=== PATIENT | male | born 1980 ===

== ENCOUNTER 2024-08-07 11:48 | Inpatient (IN) | payer OTHER ==
[2024-08-07] VITALS (8 sets, daily range): BP systolic 113–134; BP diastolic 71–87; PULSE 58–126; RESP 20–27; TEMP 98.6–101.5; O2SAT 98–100
[~2024-08-07] VITALS: Ht 177.8 cm; Wt 78.5 kg
[2024-08-07] MEDS ORDERED: METH-386 PO (11:53)
[2024-08-07] MEDS ORDERED: APIX5TAB PO (11:53)
[2024-08-07] MEDS ORDERED: CARV6 PO (11:53)
[2024-08-07] MEDS ORDERED: DIGO125T84 PO (11:53)
[2024-08-07] MEDS ORDERED: 0.9% SODIUM CHLORIDE 10 ML SYRINGE IVP PRN (12:00)
[2024-08-07] MEDS ORDERED: ROCURONIUM BROMIDE 10 MG/ML 5 ML VIAL ONE (12:31)
[2024-08-07 13:05] LABS: BASOPHILS % (AUTO) 0.4 % (0.0-2.0); EOSINOPHILS % (AUTO) 0 % (1.0-6.0); HEMATOCRIT 48.4 % (41-53); LYMPHOCYTES # (AUTO) 1.1 K/uL (1.0-4.8); LYMPHOCYTES % (AUTO) 11.4 % (22.0-44.0); MEAN CORPUSCULAR HEMOGLOBIN 31.1 pg (26.0-34.0); MEAN CORPUSCULAR HGB CONC 33.1 G/dL (31.0-37.0); MEAN CORPUSCULAR VOLUME 94 fL (80-100); MONOCYTES # (AUTO) 0.9 K/uL (0.1-1.0); MONOCYTES % (AUTO) 9.6 % (2.0-9.0); NEUTROPHILS # (AUTO) 7.8 K/uL (1.8-7.7); NEUTROPHILS % (AUTO) 78.6 % (40.0-70.0); PLATELET COUNT (AUTO) 164 K/uL (150-450); RED BLOOD CELL COUNT(AUTO) 5.15 MIL/uL (4.50-5.90); RED CELL DISTRIBUTION WIDTH 14.2 % (11.5-14.5); WHITE BLOOD COUNT (AUTO) 9.9 K/uL (4.5-11.0)
[2024-08-07 13:10] LABS: APPEARANCE,URINE CLEAR (CLEAR); BILIRUBIN,URINE NEGATIVE (NEGATIVE); COLOR,URINE YELLOW (YELLOW); GLUCOSE, URINE (UA) NEGATIVE (NEGATIVE); LEUKOCYTE ESTERASE ,URINE NEGATIVE (NEGATIVE); NITRATE,URINE NEGATIVE (NEGATIVE); OCCULT BLOOD,URINE MODERATE (NEGATIVE); PH,URINE 5.5 (5.0-8.0); PROTEIN,URINE 100-200,SEE CONFIRM mg/dL (NEGATIVE); SPECIFIC GRAVITIY, URINE 1.031 (1.003-1.030); UROBILINOGEN,URINE <=1.0 mg/dL (<=1.0)
[2024-08-07] MEDS: PROPOFOL 1000 MG/ISO-OSM 100 ML IV PRN (13:14)
[2024-08-07 13:17] LABS: INR 1.2 (0.9-1.1); PROTHROMBIN TIME 12.7 SEC (9.4-11.6)
[2024-08-07 13:21] LABS: ANION GAP 15 mmol/L (8-16); CARBON DIOXIDE 22 mmol/L (22-29); CHLORIDE 106 mmol/L (98-107); CREATININE 1.75 mg/dL (0.60-1.30); GLOMERULAR FILTR. RATE CALC 42 mL/min (>60); GLUCOSE,RANDOM 86 mg/dL (70-110); POTASSIUM 4.9 mmol/L (3.5-5.1); SODIUM SERUM 143 mmol/L (136-145); UREA NITROGEN, BLOOD 35 mg/dL (7-18)
[2024-08-07 13:30] LABS: BACTERIA,URINE None Seen /HPF (None Seen); SULFOSALICYLIC ACID,URINE 1+ (Negative); WBC,URINE None Seen /HPF (0-5)
[2024-08-07 13:30] LABS: LACTIC ACID 4.1 mmol/L (0.4-2.0)
[2024-08-07 13:31] LABS: SQUAMOUS EPITHELIAL CELL,UR None Seen /LPF (None Seen)
[2024-08-07 13:34] LABS: ALANINE AMINOTRANSFERASE 35 U/L (12-78); ALBUMIN 3.2 g/dL (3.4-5.0); ALKALINE PHOSPHATASE 119 U/L (46-116); ASPARTATE AMINOTRANSFERASE 66 U/L (15-37); BILIRUBIN,TOTAL 1.7 mg/dL (0.1-1.0)
[2024-08-07] MEDS: SODIUM CHLORIDE 0.9% 2,250 ML IV ONE (13:49)
[2024-08-07] MEDS: FentaNYL CIT 1000MCG/0.9% NACL 100 ML IV PRN (14:17)
[2024-08-07 14:25] LABS: ABG BASE EXCESS -7.3 mmol/L (-2.0-3.0); ABG CARBOXYHEMOGLOBIN 1.1 % (0.5-1.5); ABG HCO3 19.3 mmol/L (21.0-28.0); ABG METHEMOGLOBIN 0.9 % (0.0-1.5); ABG OXYGEN CONTENT 21.5 mL/dL (15.0-23.0); ABG OXYGEN SATURATION 99.7 % (94.0-98.0); ABG OXYHEMOGLOBIN 97.7 % (94.0-98.0); ABG PCO2 38 mmHg (35.0-48.0); ALLEN TEST, BLOOD GAS Positive; O2 DEVICE,BLOOD GAS VENTILATOR (ROOM AIR); PEEP,BG 5 cm H2O; PO2, ARTERIAL BG 363.8 mmHg (83.0-108.0); SITE, BLOOD GAS LFT RADIAL; SOURCE, BLOOD GAS ARTERIAL; TEMPERATURE, FAHRENHEIT, BG 102.1 FAHREN (96.0-98.6); VT, ABG 450 ml
[2024-08-07 14:26] LABS: SPONTANEOUS VT, BG 462 ml
[2024-08-07] MEDS ORDERED: ONDANSETRON HCL 4 MG/2 ML VIAL IVP PRN (14:30)
[2024-08-07] MEDS: AMPICILLIN SODIUM/SULBACTAM NA 3 GM in SODIUM CHLORIDE 0.9% 100 ML IV ONE (14:30)
[2024-08-07] MEDS ORDERED: IPRATROPIUM BROMIDE 0.5 MG/2.5 ML NEB SOLUTION NEB PRN (14:30)
[2024-08-07] MEDS ORDERED: ALBUTEROL SULFATE 2.5 MG/0.5 ML NEB SOLUTION NEB PRN (14:30)
[2024-08-07 14:57] LABS: ALCOHOL, URINE DRUG SCREEN NEGATIVE (NEGATIVE); AMPHET/METH SCREEN,URINE NEGATIVE (NEGATIVE); BARBITURATE SCREEN, URINE NEGATIVE (NEGATIVE); BENZODIAZEPINES SCREEN,URINE POSITIVE (NEGATIVE); CANNABINOID SCREEN,URINE POSITIVE (NEGATIVE); COCAINE SCREEN,URINE NEGATIVE (NEGATIVE); METHADONE SCREEN, URINE NEGATIVE (NEGATIVE); OPIATE SCREEN,URINE NEGATIVE (NEGATIVE); PHENCYCLIDINE SCREEN,URINE NEGATIVE (NEGATIVE)
[2024-08-07] MEDS: LevETIRAcetam 2,000 MG in DEXTROSE 5%-WATER 250 ML IV ONE (15:18)
[2024-08-07 15:35] LABS: PH,URINE DRUG SCREEN 5.5 (5.0-8.0)
[2024-08-07] MEDS: HEPARIN SODIUM,PORCINE 5,000 UNITS/ML VIAL SQ SCH (15:36)
[2024-08-07] MEDS: ACETAMINOPHEN 325 MG TABLET PO PRN (15:37)
[2024-08-07] MEDS: VANCOMYCIN 1.25 GM/WATER(PEG) 250 ML IV ONE (15:37)
[2024-08-07 17:08] LABS: DIGOXIN < 0.20 ng/mL (0.90-2.00); THYROID STIMULATING HORMONE < 0.01 uIU/mL (0.36-3.74)
[2024-08-07] MEDS: PIPERACILLIN/TAZO 3.375 GM/D5W 50 ML IV SCH (18:03)
[2024-08-07] MEDS ORDERED: MIDAZOLAM HCL 2 MG/2 ML VIAL IVP PRN (18:45)
[2024-08-07 19:16] LABS: GLUCOMETER DEV NAME(LOC) ICUN.5; GLUCOSE,POINT OF CARE 89 MG/DL (70-110)
[2024-08-07] MEDS: FAMOTIDINE 20 MG/2 ML VIAL IVP SCH (20:37)
[2024-08-07] MEDS: LevETIRAcetam 500 MG in DEXTROSE 5%-WATER 100 ML IV SCH (20:37)
[2024-08-07] MEDS: CHLORHEXIDINE GLUCONATE 0.12% 15 ML UDCUP ORAL RINSE MM SCH (20:37)
[2024-08-07] MEDS: DOCUSATE SODIUM 100 MG CAPSULE PO SCH (20:38)
[2024-08-07] MEDS ORDERED: LevETIRAcetam 500 MG TABLET GT SCH (21:00)
[2024-08-07] MEDS: CHLORHEXIDINE GLUCONATE 2% TOWELETTE [2'S/6'S] TP SCH (22:09)
[2024-08-08] VITALS (15 sets, daily range): BP systolic 92–114; BP diastolic 58–73; PULSE 44–82; RESP 16–20; TEMP 97.2–98.3; O2SAT 97–100
[2024-08-08 00:04] LABS: ANION GAP 9 mmol/L (8-16); CALCIUM, TOTAL 7.8 mg/dL (8.8-10.5); CARBON DIOXIDE 24 mmol/L (22-29); CHLORIDE 110 mmol/L (98-107); CREATININE 1.07 mg/dL (0.60-1.30); GLOMERULAR FILTR. RATE CALC > 60 mL/min (>60); GLUCOSE,RANDOM 97 mg/dL (70-110); POTASSIUM 3.8 mmol/L (3.5-5.1); SODIUM SERUM 143 mmol/L (136-145); UREA NITROGEN, BLOOD 27 mg/dL (7-18)
[2024-08-08] MEDS: PROPOFOL 1000 MG/ISO-OSM 100 ML IV PRN (05:51)
[2024-08-08 06:29] LABS: EOSINOPHILS % (AUTO) 0.7 % (1.0-6.0); HEMOGLOBIN 13.2 g/dL (13.5-17.5); LYMPHOCYTES # (AUTO) 2.2 K/uL (1.0-4.8); LYMPHOCYTES % (AUTO) 31.2 % (22.0-44.0); MEAN CORPUSCULAR HEMOGLOBIN 31.1 pg (26.0-34.0); MEAN CORPUSCULAR HGB CONC 33.1 G/dL (31.0-37.0); MEAN CORPUSCULAR VOLUME 94 fL (80-100); MONOCYTES # (AUTO) 1.3 K/uL (0.1-1.0); MONOCYTES % (AUTO) 18.5 % (2.0-9.0); NEUTROPHILS # (AUTO) 3.5 K/uL (1.8-7.7); NEUTROPHILS % (AUTO) 48.6 % (40.0-70.0); PLATELET COUNT (AUTO) 123 K/uL (150-450); RED BLOOD CELL COUNT(AUTO) 4.26 MIL/uL (4.50-5.90); WHITE BLOOD COUNT (AUTO) 7.1 K/uL (4.5-11.0)
[2024-08-08 06:36] LABS: ANION GAP 7 mmol/L (8-16); CARBON DIOXIDE 26 mmol/L (22-29); CHLORIDE 111 mmol/L (98-107); CREATININE 1.17 mg/dL (0.60-1.30); GLOMERULAR FILTR. RATE CALC > 60 mL/min (>60); GLUCOSE,RANDOM 91 mg/dL (70-110); POTASSIUM 3.5 mmol/L (3.5-5.1); SODIUM SERUM 144 mmol/L (136-145); UREA NITROGEN, BLOOD 26 mg/dL (7-18)
[2024-08-08] MEDS: APIXABAN 5 MG TABLET PO SCH (06:47)
[2024-08-08] MEDS: DIGOXIN 125 MCG TABLET PO SCH (08:10)
[2024-08-08] MEDS: VANCOMYCIN 750 MG/WATER(PEG) 150 ML IV SCH (08:10)
[2024-08-08] MEDS: METHIMAZOLE 5 MG TABLET PO SCH (08:10)
[2024-08-08] MEDS: CARVEDILOL 6.25 MG TABLET PO SCH (08:11)
[2024-08-08 09:59] LABS: ABG BASE EXCESS -2.4 mmol/L (-2.0-3.0); ABG CARBOXYHEMOGLOBIN 0.7 % (0.5-1.5); ABG HCO3 22.9 mmol/L (21.0-28.0); ABG METHEMOGLOBIN 0.1 % (0.0-1.5); ABG OXYGEN CONTENT 19.4 mL/dL (15.0-23.0); ABG OXYGEN SATURATION 98.5 % (94.0-98.0); ABG OXYHEMOGLOBIN 97.7 % (94.0-98.0); ABG PCO2 36 mmHg (35.0-48.0); ABG PH 7.406 (7.350-7.450); SOURCE, BLOOD GAS ARTERIAL
[2024-08-08 10:00] LABS: ALLEN TEST, BLOOD GAS Positive; O2 DEVICE,BLOOD GAS VENTILATOR (ROOM AIR); PEEP,BG 5 cm H2O; PO2, ARTERIAL BG 124.3 mmHg (83.0-108.0); SITE, BLOOD GAS LFT RADIAL; VT, ABG 450 ml
[2024-08-08] MEDS: FentaNYL CIT 1000MCG/0.9% NACL 100 ML IV PRN (10:10)
[2024-08-08] MEDS: DEXMEDETOMIDINE HCL 400 MCG in SODIUM CHLORIDE 0.9% 96 ML IV PRN (19:32)
[2024-08-08] MEDS: VANCOMYCIN 1GM/WATER(PEG/NADA) 200 ML IV SCH (20:01)
[2024-08-09] VITALS (11 sets, daily range): BP systolic 91–142; BP diastolic 51–74; PULSE 42–96; RESP 11–27; TEMP 97.3–99.8; O2SAT 20–100
[2024-08-09] MEDS ORDERED: SODIUM CHLORIDE 0.9% 250 ML IV ONE (06:08)
[2024-08-09] MEDS ORDERED: GADOTERATE MEGLUMINE 10 MMOL/20 ML VIAL IVP ONE (08:08)
[2024-08-09 08:24] LABS: BASOPHILS % (AUTO) 0.5 % (0.0-2.0); EOSINOPHILS % (AUTO) 4.2 % (1.0-6.0); HEMATOCRIT 38.8 % (41-53); HEMOGLOBIN 12.8 g/dL (13.5-17.5); LYMPHOCYTES # (AUTO) 1.9 K/uL (1.0-4.8); LYMPHOCYTES % (AUTO) 36.7 % (22.0-44.0); MEAN CORPUSCULAR HGB CONC 33.1 G/dL (31.0-37.0); MEAN CORPUSCULAR VOLUME 94 fL (80-100); MONOCYTES # (AUTO) 0.5 K/uL (0.1-1.0); MONOCYTES % (AUTO) 10.4 % (2.0-9.0); NEUTROPHILS # (AUTO) 2.5 K/uL (1.8-7.7); NEUTROPHILS % (AUTO) 48.2 % (40.0-70.0); PLATELET COUNT (AUTO) 135 K/uL (150-450); RED BLOOD CELL COUNT(AUTO) 4.14 MIL/uL (4.50-5.90); WHITE BLOOD COUNT (AUTO) 5.1 K/uL (4.5-11.0)
[2024-08-09 08:46] LABS: ANION GAP 11 mmol/L (8-16); CALCIUM, TOTAL 8.2 mg/dL (8.8-10.5); CARBON DIOXIDE 23 mmol/L (22-29); CHLORIDE 110 mmol/L (98-107); CREATININE 0.97 mg/dL (0.60-1.30); GLOMERULAR FILTR. RATE CALC > 60 mL/min (>60); GLUCOSE,RANDOM 68 mg/dL (70-110); POTASSIUM 3.4 mmol/L (3.5-5.1); SODIUM SERUM 144 mmol/L (136-145); UREA NITROGEN, BLOOD 21 mg/dL (7-18)
[2024-08-09] MEDS: DEXTROSE 50%-WATER 25 GM/50 ML SYRINGE IVP PRN (20:20)
[2024-08-09] MEDS: D5 IV ONE (21:36)
[2024-08-09] MEDS: POTASSIUM CHL IV ONE (21:36)
[2024-08-09] MEDS: [UNRECOGNIZED DRUG - OTHER] IV ONE (21:36)
[2024-08-10] VITALS (7 sets, daily range): BP systolic 128–154; BP diastolic 70–101; PULSE 47–59; RESP 14–20; TEMP 98.3–99.9; O2SAT 93–96
[2024-08-10 00:25] LABS: GLUCOMETER DEV NAME(LOC) ICUN.5; GLUCOSE,POINT OF CARE 57 MG/DL (70-110)
[2024-08-10 00:25] LABS: GLUCOMETER DEV NAME(LOC) ICUN.5; GLUCOSE,POINT OF CARE 95 MG/DL (70-110)
[2024-08-10 00:35] LABS: GLUCOMETER DEV NAME(LOC) ICU.S6; GLUCOSE,POINT OF CARE 61 MG/DL (70-110)
[2024-08-10] MEDS ORDERED: POTASSIUM CHL 20 MEQ/D5-0.45NS 1,000 ML IV ONE (01:00)
[2024-08-10] MEDS: WATER IV ONE (01:45)
[2024-08-10] MEDS: DEXTROSE 10% IV ONE (01:45)
[2024-08-10] MEDS: POTASSIUM CHLORIDE IV ONE (01:45)
[2024-08-10] MEDS: SODIUM CHLORIDE IV ONE (01:45)
[2024-08-10 02:00] LABS: GLUCOMETER DEV NAME(LOC) ICUN.5; GLUCOSE,POINT OF CARE 91 MG/DL (70-110)
[2024-08-10 06:15] LABS: EOSINOPHILS % (AUTO) 2.6 % (1.0-6.0); HEMATOCRIT 44.3 % (41-53); LYMPHOCYTES # (AUTO) 2.3 K/uL (1.0-4.8); LYMPHOCYTES % (AUTO) 35.9 % (22.0-44.0); MEAN CORPUSCULAR HEMOGLOBIN 31.8 pg (26.0-34.0); MEAN CORPUSCULAR HGB CONC 33.8 G/dL (31.0-37.0); MEAN CORPUSCULAR VOLUME 94 fL (80-100); MONOCYTES # (AUTO) 0.5 K/uL (0.1-1.0); MONOCYTES % (AUTO) 8.4 % (2.0-9.0); NEUTROPHILS # (AUTO) 3.4 K/uL (1.8-7.7); NEUTROPHILS % (AUTO) 52.1 % (40.0-70.0); PLATELET COUNT (AUTO) 173 K/uL (150-450); RED BLOOD CELL COUNT(AUTO) 4.71 MIL/uL (4.50-5.90); RED CELL DISTRIBUTION WIDTH 13.5 % (11.5-14.5); WHITE BLOOD COUNT (AUTO) 6.5 K/uL (4.5-11.0)
[2024-08-10 06:23] LABS: ANION GAP 11 mmol/L (8-16); CALCIUM, TOTAL 8.4 mg/dL (8.8-10.5); CARBON DIOXIDE 24 mmol/L (22-29); CHLORIDE 106 mmol/L (98-107); CREATININE 0.71 mg/dL (0.60-1.30); GLOMERULAR FILTR. RATE CALC > 60 mL/min (>60); GLUCOSE,RANDOM 87 mg/dL (70-110); POTASSIUM 3.7 mmol/L (3.5-5.1); SODIUM SERUM 141 mmol/L (136-145); UREA NITROGEN, BLOOD 11 mg/dL (7-18)
[2024-08-10 06:36] LABS: VANCOMYCIN,RANDOM 14.6 mcg/mL (25.0-50.0)
[2024-08-10 06:50] LABS: GLUCOMETER DEV NAME(LOC) ICU.S6; GLUCOSE,POINT OF CARE 92 MG/DL (70-110)
[2024-08-10] MEDS: VANCOMYCIN 1.25 GM/WATER(PEG) 250 ML IV SCH (10:00)
[2024-08-10] MEDS: POTASSIUM CHLORIDE IV SCH (12:35)
[2024-08-10] MEDS: DEXTROSE 10% IV SCH (12:35)
[2024-08-10] MEDS: WATER IV SCH (12:35)
[2024-08-10] MEDS: SODIUM CHLORIDE IV SCH (12:35)
[2024-08-10 16:11] LABS: GLUCOMETER DEV NAME(LOC) ICUN.5; GLUCOSE,POINT OF CARE 103 MG/DL (70-110)
[2024-08-10 16:11] LABS: GLUCOMETER DEV NAME(LOC) ICU.S6; GLUCOSE,POINT OF CARE 117 MG/DL (70-110)
[2024-08-10] MEDS ORDERED: SACU1TAB PO (16:34)
[2024-08-10] MEDS ORDERED: CITA-144 PO (16:34)
[2024-08-10] MEDS ORDERED: METO-408 PO (16:34)
[2024-08-10] MEDS ORDERED: SODIUM CHLORIDE 0.9% 500 ML IV ONE (18:18)
[2024-08-11 00:01] LABS: GLUCOMETER DEV NAME(LOC) 4E.2; GLUCOSE,POINT OF CARE 120 MG/DL (70-110)
[2024-08-11 03:40] VITALS: BP_SYST 143; BP_SYST 155; BP_DIAS 80; BP_DIAS 82; PULSE 49; PULSE 51; RESP 18; TEMP 98.4; O2SAT 96
[2024-08-11 07:44] LABS: BASOPHILS % (AUTO) 0.6 % (0.0-2.0); EOSINOPHILS % (AUTO) 3.2 % (1.0-6.0); HEMATOCRIT 41.7 % (41-53); HEMOGLOBIN 14.1 g/dL (13.5-17.5); LYMPHOCYTES % (AUTO) 35.6 % (22.0-44.0); MEAN CORPUSCULAR HEMOGLOBIN 31.5 pg (26.0-34.0); MEAN CORPUSCULAR HGB CONC 33.7 G/dL (31.0-37.0); MEAN CORPUSCULAR VOLUME 93 fL (80-100); MONOCYTES # (AUTO) 0.8 K/uL (0.1-1.0); MONOCYTES % (AUTO) 13.8 % (2.0-9.0); NEUTROPHILS # (AUTO) 2.7 K/uL (1.8-7.7); NEUTROPHILS % (AUTO) 46.8 % (40.0-70.0); PLATELET COUNT (AUTO) 172 K/uL (150-450); RED BLOOD CELL COUNT(AUTO) 4.47 MIL/uL (4.50-5.90); RED CELL DISTRIBUTION WIDTH 13.5 % (11.5-14.5); WHITE BLOOD COUNT (AUTO) 5.7 K/uL (4.5-11.0)
[2024-08-11 07:55] LABS: ANION GAP 9 mmol/L (8-16); CALCIUM, TOTAL 8.3 mg/dL (8.8-10.5); CARBON DIOXIDE 26 mmol/L (22-29); CHLORIDE 105 mmol/L (98-107); CREATININE 0.75 mg/dL (0.60-1.30); GLOMERULAR FILTR. RATE CALC > 60 mL/min (>60); GLUCOSE,RANDOM 123 mg/dL (70-110); POTASSIUM 3.8 mmol/L (3.5-5.1); SODIUM SERUM 140 mmol/L (136-145); UREA NITROGEN, BLOOD 5 mg/dL (7-18)
[2024-08-11 08:05] VITALS: BP 140/78; PULSE 50; RESP 18; TEMP 97.9; O2SAT 94
[2024-08-11] MEDS ORDERED: SODIUM CHLORIDE 0.9% 500 ML IV ONE (09:12)
[2024-08-11 11:50] LABS: GLUCOMETER DEV NAME(LOC) 6N.2B; GLUCOSE,POINT OF CARE 97 MG/DL (70-110)
[2024-08-11] MEDS ORDERED: MAGNESIUM SULFATE 4 GM/WATER 100 ML IV PRN (12:45)
[2024-08-11] MEDS ORDERED: MAGNESIUM SULFATE 2 GM/WATER 50 ML IV PRN (12:45)
[2024-08-11] MEDS ORDERED: POTASSIUM CHL 10 MEQ/WATER 50 ML IV PRN (12:45)
[2024-08-11] MEDS ORDERED: POTASSIUM CHLORIDE 20 MEQ ER TABLET PO PRN (12:45)
[2024-08-11 13:52] LABS: ALBUMIN 2.6 g/dL (3.4-5.0)
[2024-08-11 16:43] VITALS: BP 143/79; PULSE 55; RESP 18; TEMP 97.8; O2SAT 97
[2024-08-11 19:37] VITALS: BP 134/82; PULSE 53; RESP 20; TEMP 98.6; O2SAT 97
[2024-08-11] MEDS: MAGNESIUM OXIDE 400 MG TABLET PO PRN (20:08)
[2024-08-11 22:20] LABS: GLUCOMETER DEV NAME(LOC) 4E.2; GLUCOSE,POINT OF CARE 123 MG/DL (70-110)
[2024-08-12 03:44] VITALS: BP 137/75; PULSE 51; RESP 16; TEMP 98.3; O2SAT 98
[2024-08-12 08:56] VITALS: BP 140/71; PULSE 49; RESP 17; TEMP 97.9; O2SAT 100
[2024-08-12] MEDS ORDERED: MAGNESIUM SULFATE 2 GM in DEXTROSE 5%-WATER 100 ML IV ONE (12:00)
[2024-08-12 12:43] LABS: BASOPHILS % (AUTO) 0.8 % (0.0-2.0); EOSINOPHILS % (AUTO) 2.5 % (1.0-6.0); HEMATOCRIT 41.6 % (41-53); HEMOGLOBIN 13.7 g/dL (13.5-17.5); LYMPHOCYTES # (AUTO) 1.7 K/uL (1.0-4.8); LYMPHOCYTES % (AUTO) 29.8 % (22.0-44.0); MEAN CORPUSCULAR HEMOGLOBIN 30.7 pg (26.0-34.0); MEAN CORPUSCULAR VOLUME 93 fL (80-100); MONOCYTES # (AUTO) 0.5 K/uL (0.1-1.0); MONOCYTES % (AUTO) 8.2 % (2.0-9.0); NEUTROPHILS # (AUTO) 3.3 K/uL (1.8-7.7); NEUTROPHILS % (AUTO) 58.7 % (40.0-70.0); PLATELET COUNT (AUTO) 223 K/uL (150-450); RED BLOOD CELL COUNT(AUTO) 4.47 MIL/uL (4.50-5.90); RED CELL DISTRIBUTION WIDTH 13.2 % (11.5-14.5); WHITE BLOOD COUNT (AUTO) 5.5 K/uL (4.5-11.0)
[2024-08-12 13:13] LABS: ANION GAP 10 mmol/L (8-16); CALCIUM, TOTAL 8.8 mg/dL (8.8-10.5); CARBON DIOXIDE 27 mmol/L (22-29); CHLORIDE 103 mmol/L (98-107); CREATININE 0.76 mg/dL (0.60-1.30); DIGOXIN 0.56 ng/mL (0.90-2.00); GLOMERULAR FILTR. RATE CALC > 60 mL/min (>60); GLUCOSE,RANDOM 87 mg/dL (70-110); POTASSIUM 3.6 mmol/L (3.5-5.1); SODIUM SERUM 140 mmol/L (136-145); UREA NITROGEN, BLOOD 5 mg/dL (7-18)
[2024-08-12 15:37] VITALS: BP 130/74; PULSE 54; RESP 18; TEMP 97.6; O2SAT 96
[2024-08-12 17:56] LABS: GLUCOMETER DEV NAME(LOC) 4E.2; GLUCOSE,POINT OF CARE 95 MG/DL (70-110)
[2024-08-12 20:00] VITALS: BP 126/68; PULSE 56; RESP 18; TEMP 98.3; O2SAT 98
[2024-08-12] MEDS ORDERED: SODIUM CHLORIDE 0.9% 500 ML IV ONE (22:33)
[2024-08-13 03:57] VITALS: BP 128/88; PULSE 49; RESP 20; TEMP 98.2; O2SAT 100
[2024-08-13 05:40] LABS: GLUCOMETER DEV NAME(LOC) 6N.2B; GLUCOSE,POINT OF CARE 100 MG/DL (70-110)
[2024-08-13 07:24] VITALS: BP 144/73; PULSE 49; RESP 18; TEMP 97.7; O2SAT 98
[2024-08-13 07:55] LABS: ANION GAP 7 mmol/L (8-16); CALCIUM, TOTAL 8.5 mg/dL (8.8-10.5); CARBON DIOXIDE 29 mmol/L (22-29); CHLORIDE 102 mmol/L (98-107); GLOMERULAR FILTR. RATE CALC > 60 mL/min (>60); GLUCOSE,RANDOM 81 mg/dL (70-110); POTASSIUM 3.9 mmol/L (3.5-5.1); SODIUM SERUM 138 mmol/L (136-145); UREA NITROGEN, BLOOD 9 mg/dL (7-18)
[2024-08-13] MEDS ORDERED: PIPE3.3719 IV (11:54)
[2024-08-13] MEDS ORDERED: ALBU2.5V39 NEB (11:54)
[2024-08-13] MEDS ORDERED: LEVE-71 PO (12:14)
[2024-08-13] MEDS ORDERED: IPRA0.2S49 NEB (12:16)
[2024-08-13 15:16] VITALS: BP 142/69; PULSE 57; RESP 20; TEMP 98.4; O2SAT 99
[2024-08-13] MEDS ORDERED: APIXABAN 5 MG TABLET PO SCH (21:00)
== END 2024-08-13 15:51 | DRG 812 ==
LOC: EMS 11:52 → EDH 14:43 → ICU 15:15 → 4E 08-10 17:00
PROVIDERS: ADMIT Internal Medicine; ATTEND Internal Medicine
PROC: 5A1945Z Respiratory Ventilation, 24-96 Consecutive Hours (ICD-10-PCS; principal; 2024-08-07)
PROC: 0BH17EZ Insertion of Endotracheal Airway into Trachea, Via Natural or Artificial Opening (ICD-10-PCS; 2024-08-07)
PROC: 5A09357 Assistance with Respiratory Ventilation, Less than 24 Consecutive Hours, Continuous Positive Airway Pressure (ICD-10-PCS; 2024-08-07)
DX: T40.411A Poisoning by fentanyl or fentanyl analogs, accidental (unintentional), initial encounter (principal); J96.00 Acute respiratory failure, unspecified whether with hypoxia or hypercapnia; N17.0 Acute kidney failure with tubular necrosis; J69.0 Pneumonitis due to inhalation of food and vomit; A41.9 Sepsis, unspecified organism; G92.8 Other toxic encephalopathy; J90 Pleural effusion, not elsewhere classified; I10 Essential (primary) hypertension; I48.0 Paroxysmal atrial fibrillation; R56.9 Unspecified convulsions; E03.9 Hypothyroidism, unspecified; E05.90 Thyrotoxicosis, unspecified without thyrotoxic crisis or storm; R26.2 Difficulty in walking, not elsewhere classified; R32 Unspecified urinary incontinence; Y92.89 Other specified places as the place of occurrence of the external cause; Z79.01 Long term (current) use of anticoagulants; Z86.73 Personal history of transient ischemic attack (TIA), and cerebral infarction without residual deficits
CPT/HCPCS: 36600; 70450; 70553; 71045; 71250; 80048; 80053; 80162; 80202; 80307; 81001; 81002; 82040; 82805; 82962; 83605; 83735; 84145; 84439; 84443; 85025; 85610; 87040; 87070; 87077; 87081; 87205; 87481; 93005; 93306; 93925; 94002; 94003; 94660; 95816; 97162; 97165; 97530; 97535; 99291; G0378; J0295; J0712; J1644; J2543; J2704; J3010; J3475; J3480; J3490; J7030; J7040; J7050; J7060; J7131; 36415-L1; 36415-TC

== ENCOUNTER 2025-09-08 10:35 | Emergency (ER) | payer OTHER ==
[~2025-09-08] VITALS: Ht 170.2 cm; Wt 91.6 kg
[~2025-09-08 10:35] MED LIST: ALBU2.5V39 NEB; APIX5TAB PO; CITA-144 PO; DIGO125T84 PO; IPRA0.2S49 NEB; LEVE-71 PO; METH-386 PO; METO-408 PO; PIPE3.3719 IV
[2025-09-08 10:44] VITALS: BP 161/108; PULSE 88; RESP 16; TEMP 98.7; O2SAT 98
[2025-09-08 11:22] LABS: PLATELET COUNT (AUTO) 221 K/uL (150-450); RED BLOOD CELL COUNT(AUTO) 5.72 MIL/uL (4.50-5.90); RED CELL DISTRIBUTION WIDTH 12.7 % (11.5-14.5); WHITE BLOOD COUNT (AUTO) 5.7 K/uL (4.5-11.0)
[2025-09-08 11:23] LABS: CALCIUM, TOTAL 8.5 mg/dL (8.8-10.5); CREATININE 0.99 mg/dL (0.60-1.30); GLOMERULAR FILTR. RATE CALC > 60 mL/min (>60); GLUCOSE,RANDOM 123 mg/dL (70-110); SODIUM SERUM 137 mmol/L (136-145); UREA NITROGEN, BLOOD 12 mg/dL (7-18)
== END 2025-09-08 13:42 | disposition left against medical advice (07) ==
LOC: EMS 10:39
DX: S09.90XA Unspecified injury of head, initial encounter (principal); I10 Essential (primary) hypertension; F17.210 Nicotine dependence, cigarettes, uncomplicated; Z79.899 Other long term (current) drug therapy; Z79.01 Long term (current) use of anticoagulants; Z86.73 Personal history of transient ischemic attack (TIA), and cerebral infarction without residual deficits; V89.2XXA Person injured in unspecified motor-vehicle accident, traffic, initial encounter; Y93.89 Activity, other specified; Y92.410 Unspecified street and highway as the place of occurrence of the external cause; Y99.8 Other external cause status
CPT/HCPCS: 70450; 80048; 85025; 85610; 99284